=== PATIENT | male | born 1990 | race Caucasian/White ===

== ENCOUNTER 2019-03-02 10:36 | Emergency (ER) | payer OTHER ==
[~2019-03-02] VITALS: Ht 172.7 cm; Wt 96.4 kg
[2019-03-02] MEDS ORDERED: IBUP200C25 PO (13:07)
[2019-03-02] MEDS ORDERED: IBUP80TA PO (14:34)
[2019-03-02 14:44] VITALS: BP 123/61
[2019-03-02] MEDS ORDERED: KETOROLAC TROMETHAMINE 10 MG TAB PO ONE (14:45)
[2019-03-02] MEDS ORDERED: LIDOCAINE 5% (LIDODERM) PATCH TD ONE (14:45)
== END 2019-03-02 14:46 | disposition home or self-care (01) ==
LOC: M ED 10:36
DX: S39.012A Strain of muscle, fascia and tendon of lower back, initial encounter (principal); X58.XXXA Exposure to other specified factors, initial encounter; Y92.89 Other specified places as the place of occurrence of the external cause; Y93.02 Activity, running; F17.210 Nicotine dependence, cigarettes, uncomplicated; Z79.1 Long term (current) use of non-steroidal anti-inflammatories (NSAID)